=== PATIENT | female | born 1970 ===

== ENCOUNTER 2022-12-22 08:28 | Day surgery (SDC) | payer OTHER ==
[~2022-12-22] VITALS: Ht 165.1 cm; Wt 72.6 kg
[~2022-12-22 08:28] MED LIST: TAPAZOLE5 MG PO
== END 2022-12-22 17:40 | disposition home or self-care (01) ==
LOC: CIR.AMB 08:28
PROVIDERS: ATTEND Otolaryngology Otology & Neurotology
DX: H90.11 Conductive hearing loss, unilateral, right ear, with unrestricted hearing on the contralateral side (principal); H66.91 Otitis media, unspecified, right ear; H74.21 Discontinuity and dislocation of right ear ossicles; H74.11 Adhesive right middle ear disease; D68.9 Coagulation defect, unspecified; Z20.822 Contact with and (suspected) exposure to COVID-19